=== PATIENT | female | born 1955 | race Caucasian/White ===

== ENCOUNTER 2021-05-30 20:07 | Emergency (ER) | payer MEDICARE ==
[~2021-05-30] VITALS: Ht 160 cm; Wt 63.5 kg
[2021-05-30 21:13] LABS: BASOPHILS ABSOLUTE AUTO 0.08 K/mm3 (0.00-0.23); BASOPHILS PERCENT AUTO 1 % (0-2); EOSINOPHILS ABSOLUTE AUTO 0.26 K/mm3 (0.00-0.68); EOSINOPHILS PERCENT AUTO 3 % (0-6); Hematocrit 44.4 % (33.0-51.0); Hemoglobin 14.2 g/dL (11.5-16.0); IMMATURE GRAN ABSOLUTE AUTO 0.06 K/mm3 (0.00-0.10); IMMATURE GRAN PERCENT AUTO 1 % (0-1); LYMPHOCYTES ABSOLUTE AUTO 2.39 K/mm3 (0.84-5.20); LYMPHOCYTES PERCENT AUTO 31 % (21-46); MONOCYTES ABSOLUTE AUTO 0.58 K/mm3 (0.16-1.47); MONOCYTES PERCENT AUTO 8 % (4-13); Mean Corpuscular HGB 27.7 pg (26.0-34.0); Mean Corpuscular Volume 87 fL (80-100); NEUTROPHILS ABSOLUTE AUTO 4.41 K/mm3 (1.96-9.15); NEUTROPHILS PERCENT AUTO 57 % (41-73); RDW Coefficient Variation 13.4 % (11.7-14.2); Red Blood Cell Count 5.12 M/mm3 (3.80-5.20); White Blood Cell Count 7.78 K/mm3 (4.00-11.30)
[2021-05-30 21:14] LABS: Mean Platelet Volume 9.9 fL (9.1-12.4); Platelet Count 144 K/mm3 (150-400)
[2021-05-30 21:45] LABS: Alanine Aminotransfer (ALT/SGP 24 U/L (12-78); Albumin, Blood 3.6 g/dL (3.4-5.0); Alk Phos 106 U/L (50-136); Anion Gap 7 mmol/L (6-16); Aspartate Aminotrans (AST/SGOT 24 U/L (12-37); Bilirubin, Total 0.3 mg/dL (0.1-1.0); Blood Urea Nitrogen 22 mg/dL (8-24); Bun/Creatinine Ratio 15.7 (12.0-20.0); CO2, Blood 25 mmol/L (21-32); Calcium, Blood 8.9 mg/dL (8.5-10.1); Chloride, Blood 109 mmol/L (98-108); Globulin, Blood 3.5 g/dL (2.2-4.0); Glomerular Filtration Rate 38 (60-); Glucose, Blood 99 mg/dL (70-99); Potassium, Blood 4.5 mmol/L (3.5-5.5); Sodium, Blood 141 mmol/L (136-145); Total Protein, Blood 7.1 g/dL (6.4-8.2); Troponin I <0.015 ng/mL (0.000-0.040)
[2021-05-30] MEDS ORDERED: CENTRUM SILVER1 EAC2 PO (21:46)
[2021-05-30] MEDS ORDERED: LISI20 PO (21:46)
[2021-05-30] MEDS ORDERED: ZINC15 PO (21:47)
[2021-05-30] MEDS ORDERED: PROTONIX40 M2 PO (21:47)
[2021-05-30] MEDS ORDERED: PRED20 PO (23:21)
[2021-05-30] MEDS ORDERED: DOXY100 PO (23:21)
== END 2021-05-30 23:34 | disposition home or self-care (01) ==
LOC: ER 20:07
PROVIDERS: Physician Assistant
DX: J44.1 Chronic obstructive pulmonary disease with (acute) exacerbation (principal); Z79.899 Other long term (current) drug therapy; Z87.891 Personal history of nicotine dependence
CPT/HCPCS: 71045; 80053; 84484; 85025; 93005; 93010; 99284-25; A9270; J7512

== ENCOUNTER 2021-09-09 17:22 | Emergency (ER) | payer MEDICARE, OTHER ==
[~2021-09-09] VITALS: Ht 160 cm; Wt 68.5 kg
[~2021-09-09 17:22] MED LIST: CENTRUM SILVER1 EAC2 PO; DOXY100 PO; LISI20 PO; PRED20 PO; PROTONIX40 M2 PO; ZINC15 PO
[2021-09-09 20:04] LABS: BASOPHILS ABSOLUTE AUTO 0.07 K/mm3 (0.00-0.23); BASOPHILS PERCENT AUTO 1 % (0-2); EOSINOPHILS ABSOLUTE AUTO 0.27 K/mm3 (0.00-0.68); EOSINOPHILS PERCENT AUTO 3 % (0-6); Hematocrit 44.1 % (33.0-51.0); Hemoglobin 14.2 g/dL (11.5-16.0); IMMATURE GRAN ABSOLUTE AUTO 0.02 K/mm3 (0.00-0.10); IMMATURE GRAN PERCENT AUTO 0 % (0-1); LYMPHOCYTES ABSOLUTE AUTO 2.24 K/mm3 (0.84-5.20); LYMPHOCYTES PERCENT AUTO 24 % (21-46); MONOCYTES ABSOLUTE AUTO 0.85 K/mm3 (0.16-1.47); MONOCYTES PERCENT AUTO 9 % (4-13); Mean Corpuscular HGB 27.7 pg (26.0-34.0); Mean Corpuscular HGB Conc 32.2 g/dL (31.5-36.5); Mean Corpuscular Volume 86 fL (80-100); Mean Platelet Volume 9.7 fL (9.1-12.4); NEUTROPHILS PERCENT AUTO 63 % (41-73); Platelet Count 171 K/mm3 (150-400); RDW Coefficient Variation 13.9 % (11.7-14.2); RDW Standard Deviation 44.2 fL (35.1-46.3); Red Blood Cell Count 5.12 M/mm3 (3.80-5.20); White Blood Cell Count 9.35 K/mm3 (4.00-11.30)
[2021-09-09 20:28] LABS: Albumin, Blood 3.6 g/dL (3.4-5.0); Albumin/Globulin Ratio 0.9 (0.8-1.8); Bilirubin, Total 0.7 mg/dL (0.1-1.0); Bun/Creatinine Ratio 16.5 (12.0-20.0); Calcium, Blood 8.9 mg/dL (8.5-10.1); Creatinine, Blood 1.15 mg/dL (0.40-1.00); Globulin, Blood 3.9 g/dL (2.2-4.0); Potassium, Blood 4.5 mmol/L (3.5-5.5); Total Protein, Blood 7.5 g/dL (6.4-8.2)
[2021-09-09] MEDS ORDERED: SULTRIDS PO (21:09)
[2021-09-09] MEDS ORDERED: CEPH500 PO (21:09)
== END 2021-09-09 21:51 | disposition home or self-care (01) ==
LOC: ER 17:22
PROVIDERS: Physician Assistant
DX: L03.113 Cellulitis of right upper limb (principal); J44.9 Chronic obstructive pulmonary disease, unspecified; Z79.899 Other long term (current) drug therapy
CPT/HCPCS: 36415; 80053; 83605; 85025; 90471; 90714; 99283-25; A9270; J7030

== ENCOUNTER 2023-06-08 17:39 | Emergency (ER) | payer MEDICARE, OTHER ==
[~2023-06-08] VITALS: Ht 157.5 cm; Wt 72.6 kg
[~2023-06-08 17:39] MED LIST changes: +CEPH500 PO; +HYDR1TAB94 PO; +Norco 5-325 Ta1 EACH PO; +SULTRIDS PO
[2023-06-08 18:33] VITALS: BP 142/71
[2023-06-08 19:25] LABS: Influenza A, PCR NEGATIVE (NEGATIVE); Influenza B, PCR NEGATIVE (NEGATIVE); Resp Syncytial Virus, PCR NEGATIVE (NEGATIVE); SARS-Cov-2 (COVID-19) PCR, MMC NEGATIVE (NEGATIVE)
[2023-06-08 19:32] LABS: BASOPHILS ABSOLUTE AUTO 0.06 K/mm3 (0.00-0.23); BASOPHILS PERCENT AUTO 0 % (0-2); EOSINOPHILS ABSOLUTE AUTO 0.02 K/mm3 (0.00-0.68); EOSINOPHILS PERCENT AUTO 0 % (0-6); Hematocrit 47.4 % (33.0-51.0); Hemoglobin 15.3 g/dL (11.5-16.0); IMMATURE GRAN ABSOLUTE AUTO 0.05 K/mm3 (0.00-0.10); IMMATURE GRAN PERCENT AUTO 0 % (0-1); LYMPHOCYTES ABSOLUTE AUTO 1.99 K/mm3 (0.84-5.20); LYMPHOCYTES PERCENT AUTO 14 % (21-46); MONOCYTES ABSOLUTE AUTO 1.73 K/mm3 (0.16-1.47); MONOCYTES PERCENT AUTO 12 % (4-13); Mean Corpuscular HGB 27.8 pg (26.0-34.0); Mean Corpuscular HGB Conc 32.3 g/dL (31.5-36.5); Mean Corpuscular Volume 86 fL (80-100); Mean Platelet Volume 9.5 fL (9.1-12.4); NEUTROPHILS ABSOLUTE AUTO 10.32 K/mm3 (1.96-9.15); NEUTROPHILS PERCENT AUTO 73 % (41-73); Platelet Count 142 K/mm3 (150-400); RDW Coefficient Variation 15.1 % (11.7-14.2); RDW Standard Deviation 47.8 fL (35.1-46.3); White Blood Cell Count 14.17 K/mm3 (4.00-11.30)
[2023-06-08 20:01] LABS: Albumin, Blood 3.7 g/dL (3.4-5.0); Albumin/Globulin Ratio 0.8 (0.8-1.8); Bilirubin, Total 0.8 mg/dL (0.1-1.0); Bun/Creatinine Ratio 15.1 (12.0-20.0); Calcium, Blood 9.2 mg/dL (8.5-10.1); Creatinine, Blood 1.59 mg/dL (0.40-1.00); Globulin, Blood 4.4 g/dL (2.2-4.0); Potassium, Blood 4.9 mmol/L (3.5-5.5); Total Protein, Blood 8.1 g/dL (6.4-8.2)
== END 2023-06-08 21:11 | disposition home or self-care (01) ==
LOC: ER 17:39
PROVIDERS: Student in an Organized Health Care Education/Training Program
DX: B34.9 Viral infection, unspecified (principal); Z20.822 Contact with and (suspected) exposure to COVID-19; J44.9 Chronic obstructive pulmonary disease, unspecified; Z87.891 Personal history of nicotine dependence; Z79.899 Other long term (current) drug therapy
CPT/HCPCS: 0241U; 36415; 71046; 80053; 85025; 96372; 99284-25; A9270; J1885

== ENCOUNTER 2025-01-15 15:57 | Emergency (ER) | payer MEDICARE, OTHER ==
[~2025-01-15] VITALS: Ht 157.5 cm; Wt 70.3 kg
[2025-01-15] MEDS ORDERED: Diltiazem HCl 5 MG / ML 5ML Vial IV ONE (16:20)
[2025-01-15 16:30] LABS: BASOPHILS ABSOLUTE AUTO 0.07 K/mm3 (0.00-0.23); BASOPHILS PERCENT AUTO 1 % (0-2); EOSINOPHILS ABSOLUTE AUTO 0.19 K/mm3 (0.00-0.68); EOSINOPHILS PERCENT AUTO 3 % (0-6); Hematocrit 47.4 % (33.0-51.0); Hemoglobin 15.0 g/dL (11.5-16.0); IMMATURE GRAN ABSOLUTE AUTO 0.02 K/mm3 (0.00-0.10); IMMATURE GRAN PERCENT AUTO 0 % (0-1); LYMPHOCYTES ABSOLUTE AUTO 1.74 K/mm3 (0.84-5.20); LYMPHOCYTES PERCENT AUTO 23 % (21-46); MONOCYTES ABSOLUTE AUTO 0.51 K/mm3 (0.16-1.47); MONOCYTES PERCENT AUTO 7 % (4-13); Mean Corpuscular HGB Conc 31.6 g/dL (31.5-36.5); Mean Corpuscular Volume 85 fL (80-100); NEUTROPHILS ABSOLUTE AUTO 5.02 K/mm3 (1.96-9.15); NEUTROPHILS PERCENT AUTO 67 % (41-73); NRBC ABSOLUTE 0.00 K/mm3 (0.00-0.02); NRBC Auto 0.0 /100 WBC (0.0-0.2); Platelet Count 77 K/mm3 (150-400); RDW Coefficient Variation 14.8 % (11.7-14.2); RDW Standard Deviation 45.8 fL (35.1-46.3)
[2025-01-15 16:42] LABS: Alanine Aminotransfer (ALT/SGP 27.0 U/L (12-78); Albumin, Blood 3.7 g/dL (3.4-5.0); Albumin/Globulin Ratio 1.0 (0.8-1.8); Anion Gap 7.0 mmol/L (3-11); Aspartate Aminotrans (AST/SGOT 22.0 U/L (12-37); Bilirubin, Total 0.6 mg/dL (0.1-1.0); Blood Urea Nitrogen 26.0 mg/dL (8-24); CO2, Blood 28.0 mmol/L (21-32); Calcium, Blood 9.0 mg/dL (8.5-10.1); Chloride, Blood 107.0 mmol/L (98-108); Creatinine, Blood 1.2 mg/dL (0.40-1.00); Globulin, Blood 3.6 g/dL (2.2-4.0); Glucose, Blood 128.0 mg/dL (70-99); Potassium, Blood 4.9 mmol/L (3.5-5.5); Sodium, Blood 137.0 mmol/L (136-145); Total Protein, Blood 7.3 g/dL (6.4-8.2)
[2025-01-15 18:19] VITALS: BP 128/74
[2025-01-15] MEDS ORDERED: ELIQUIS5 M2 PO (19:48)
[2025-01-15] MEDS ORDERED: Toprol Xl25 MG PO (19:48)
== END 2025-01-15 20:20 | disposition home or self-care (01) ==
LOC: ER 15:57
PROVIDERS: Emergency Medicine
DX: I48.91 Unspecified atrial fibrillation (principal); J43.9 Emphysema, unspecified; Z87.891 Personal history of nicotine dependence; Z79.899 Other long term (current) drug therapy; I73.9 Peripheral vascular disease, unspecified; I49.9 Cardiac arrhythmia, unspecified; I77.89 Other specified disorders of arteries and arterioles
CPT/HCPCS: 71045; 80053; 84484; 85025; 93005; 93010; 93922; 96374; 99285-25

== ENCOUNTER 2025-03-21 12:19 | Emergency (ER) | payer MEDICARE, OTHER ==
[~2025-03-21] VITALS: Ht 157.5 cm; Wt 72.6 kg
[~2025-03-21 12:19] MED LIST changes: +ELIQUIS5 M2 PO; +Toprol Xl25 MG PO
[2025-03-21] MEDS ORDERED: Diltiazem HCl 5 MG / ML 5ML Vial IV ONE ×2 (13:15→16:45)
[2025-03-21 13:37] LABS: BASOPHILS ABSOLUTE AUTO 0.06 K/mm3 (0.00-0.23); BASOPHILS PERCENT AUTO 1 % (0-2); EOSINOPHILS ABSOLUTE AUTO 0.25 K/mm3 (0.00-0.68); EOSINOPHILS PERCENT AUTO 3 % (0-6); Hematocrit 43.2 % (33.0-51.0); Hemoglobin 14.1 g/dL (11.5-16.0); IMMATURE GRAN ABSOLUTE AUTO 0.02 K/mm3 (0.00-0.10); IMMATURE GRAN PERCENT AUTO 0 % (0-1); LYMPHOCYTES ABSOLUTE AUTO 2.35 K/mm3 (0.84-5.20); LYMPHOCYTES PERCENT AUTO 30 % (21-46); MONOCYTES ABSOLUTE AUTO 0.58 K/mm3 (0.16-1.47); MONOCYTES PERCENT AUTO 7 % (4-13); Mean Corpuscular HGB Conc 32.6 g/dL (31.5-36.5); Mean Corpuscular Volume 87 fL (80-100); NEUTROPHILS ABSOLUTE AUTO 4.70 K/mm3 (1.96-9.15); NEUTROPHILS PERCENT AUTO 59 % (41-73); NRBC ABSOLUTE 0.00 K/mm3 (0.00-0.02); NRBC Auto 0.0 /100 WBC (0.0-0.2); Platelet Count 65 K/mm3 (150-400); RDW Coefficient Variation 15.4 % (11.7-14.2); RDW Standard Deviation 48.8 fL (35.1-46.3)
[2025-03-21 13:50] LABS: Anion Gap 8.0 mmol/L (3-11); Blood Urea Nitrogen 24.0 mg/dL (8-24); CO2, Blood 25.0 mmol/L (21-32); Calcium, Blood 8.7 mg/dL (8.5-10.1); Chloride, Blood 110.0 mmol/L (98-108); Creatinine, Blood 1.08 mg/dL (0.40-1.00); Glucose, Blood 139.0 mg/dL (70-99); Potassium, Blood 4.0 mmol/L (3.5-5.5); Sodium, Blood 139.0 mmol/L (136-145)
[2025-03-21 17:50] VITALS: BP 126/84
== END 2025-03-21 17:58 | disposition home or self-care (01) ==
LOC: ER 12:19
PROVIDERS: Student in an Organized Health Care Education/Training Program
DX: I48.91 Unspecified atrial fibrillation (principal); J44.9 Chronic obstructive pulmonary disease, unspecified; Z87.891 Personal history of nicotine dependence; Z79.899 Other long term (current) drug therapy
CPT/HCPCS: 71046; 80048; 83880; 84484; 85025; 93005; 93010; 96374; 96376; 99285-25; A9270

== ENCOUNTER → 2025-05-14 | Outpatient (CLI) | payer MEDICARE, OTHER | LOC: LAB 18:37 → LAB SHORT 18:37 | DX: R30.0 Dysuria (principal) | CPT/HCPCS: 87077; 87086; 87186 ==

== ENCOUNTER 2025-06-16 13:14 | Emergency (ER) | payer MEDICARE, OTHER ==
[~2025-06-16] VITALS: Ht 157.5 cm; Wt 72.6 kg
[2025-06-16] MEDS ORDERED: Oxymetazoline 0.05% Nasal Relief Spray 15mL BTL ONE (13:25)
[2025-06-16 14:18] LABS: BASOPHILS ABSOLUTE AUTO 0.09 K/mm3 (0.00-0.23); BASOPHILS PERCENT AUTO 1 % (0-2); EOSINOPHILS ABSOLUTE AUTO 0.31 K/mm3 (0.00-0.68); EOSINOPHILS PERCENT AUTO 4 % (0-6); Hematocrit 46.0 % (33.0-51.0); Hemoglobin 14.8 g/dL (11.5-16.0); IMMATURE GRAN ABSOLUTE AUTO 0.02 K/mm3 (0.00-0.10); IMMATURE GRAN PERCENT AUTO 0 % (0-1); LYMPHOCYTES ABSOLUTE AUTO 2.25 K/mm3 (0.84-5.20); LYMPHOCYTES PERCENT AUTO 31 % (21-46); MONOCYTES ABSOLUTE AUTO 0.57 K/mm3 (0.16-1.47); MONOCYTES PERCENT AUTO 8 % (4-13); Mean Corpuscular HGB Conc 32.2 g/dL (31.5-36.5); Mean Corpuscular Volume 87 fL (80-100); NEUTROPHILS ABSOLUTE AUTO 4.01 K/mm3 (1.96-9.15); NEUTROPHILS PERCENT AUTO 55 % (41-73); NRBC ABSOLUTE 0.00 K/mm3 (0.00-0.02); NRBC Auto 0.0 /100 WBC (0.0-0.2); Platelet Count 67 K/mm3 (150-400); RDW Coefficient Variation 14.6 % (11.7-14.2); RDW Standard Deviation 46.8 fL (35.1-46.3)
[2025-06-16 14:38] LABS: Alanine Aminotransfer (ALT/SGP 27.0 U/L (12-78); Albumin, Blood 3.8 g/dL (3.4-5.0); Albumin/Globulin Ratio 1.0 (0.8-1.8); Anion Gap 9.0 mmol/L (3-11); Aspartate Aminotrans (AST/SGOT 21.0 U/L (12-37); Bilirubin, Total 0.6 mg/dL (0.1-1.0); Blood Urea Nitrogen 21.0 mg/dL (8-24); CO2, Blood 26.0 mmol/L (21-32); Calcium, Blood 9.1 mg/dL (8.5-10.1); Chloride, Blood 108.0 mmol/L (98-108); Creatinine, Blood 1.13 mg/dL (0.40-1.00); Globulin, Blood 3.8 g/dL (2.2-4.0); Glucose, Blood 117.0 mg/dL (70-99); Potassium, Blood 4.6 mmol/L (3.5-5.5); Sodium, Blood 138.0 mmol/L (136-145); Total Protein, Blood 7.6 g/dL (6.4-8.2)
[2025-06-16 16:00] LABS: Source, Urine Clean Catch
[2025-06-16] MEDS ORDERED: IPRAT-ALBUT 0.5-3 ML (16:05)
[2025-06-16] MEDS ORDERED: BEVESPI AEROS10.7 G1 (16:06)
[2025-06-16] MEDS ORDERED: METO50ER PO (16:06)
[2025-06-16] MEDS ORDERED: PANTOPRAZOLE SO40 M2 PO (16:06)
[2025-06-16] MEDS ORDERED: TROSPIUM CHLORI20 M1 PO (16:06)
[2025-06-16] MEDS ORDERED: Aspir 8181 MG PO (16:07)
[2025-06-16] MEDS ORDERED: FOSAMAX70 MG PO (16:07)
[2025-06-16] MEDS ORDERED: PROAIR RESPICL90 MCG (16:07)
[2025-06-16] MEDS ORDERED: LIPITOR80 MG PO (16:07)
[2025-06-16 16:33] LABS: Bilirubin, Urine Neg (Neg); Color, Urine Yellow (P-Yellow); Glucose Qualitative, Urine Neg (Neg); Ketones, Urine Neg (Neg); Leukocyte Esterase, Urine 3+ (Neg); Protein, Urine 2+ (Neg); Specific Gravity, Urine 1.015 (1.003-1.022); Urobilinogen, Urine NORM (Normal)
[2025-06-16 18:09] VITALS: BP 154/74
[2025-06-16] MEDS ORDERED: CEPH500 PO (18:22)
== END 2025-06-16 18:33 | disposition home or self-care (01) ==
LOC: ER 13:14
PROVIDERS: Physician Assistant
DX: R04.0 Epistaxis (principal); N39.0 Urinary tract infection, site not specified; J44.9 Chronic obstructive pulmonary disease, unspecified; Z79.899 Other long term (current) drug therapy; Z87.891 Personal history of nicotine dependence; Z79.01 Long term (current) use of anticoagulants
CPT/HCPCS: 74176; 80053; 81001; 85025; 87077; 87086; 87186; 99284-25; A9270